=== PATIENT | male | born 1985 | race Caucasian/White ===

== ENCOUNTER 2016-12-22 00:59 | Emergency (ER) | payer OTHER ==
[2016-12-22] MEDS ORDERED: ASPIRIN 81 MG CHEW TAB ONE (01:09)
[2016-12-22] MEDS: ASPIRIN 325 MG TABLET PO ONE (01:10)
--- NOTE | 2016-12-22 01:31 | ED Physician Documentation ---
General Adult - HISTORIAN Historian: patient - HPI Stated Complaint: chest pain, shortness of breath Chief Complaint: General Adult Additional Information: Left sided CP began at about 2330 while he was getting ready for work. Pressure , feels like elephant sitting on chest. Radiates toward left shoulder. Went to work and saw nurse who told him vital signs were ok. No sweats, palpitations, or SOB. Pain has gotten better since it began. Worse with deep breath. Never had this before. - ROS CONST: no problems - PAST HX Past History: none Surgeries/Procedures: none Allergies/Adverse Reactions: Allergies Allergy/AdvReac Type Severity Reaction Status Date / Time No Known Allergies Allergy Verified 12/22/16 01:09 Home Medications: Ambulatory Orders Medication Instructions Recorded Amoxicillin [Trimox] 500 mg PO TID #30 capsule 12/22/16 Azithromycin [Zithromax] 250 mg PO DAILY #4 tablet 12/22/16 - SOCIAL HX Smoking History: cigarettes (1/2 PPD fpr fpur years) - FAMILY HX Family History: Yes (blood clots beginning in 40's, father's family) - VITAL SIGNS Vital Signs: Vital Signs Temp Pulse Resp BP Pulse Ox 92 H 18 124/72 97 12/22/16 01:00 12/22/16 01:00 12/22/16 01:00 12/22/16 01:07 - REVIEWED ASSESSMENTS Nursing Assessment Reviewed: Yes Vitals Reviewed: Yes Progress - Progress Progress: Chest 2 views History: Left chest pain and difficulty breathing Findings: Hazy bibasilar infiltrate or edema is observed. Heart size and pulmonary vascularity are normal. No pleural effusions are identified. Low lung volumes are noted. Osseous structures are unremarkable. Impression: 1. Low lung volumes with hazy bibasilar infiltrate or edema. Electronically signed on Dec 22, 2016 1:33:11 AM STRATEGY DIRECTOR by: Ed Cardenas ED Results Lab/Radiology - Orders Orders: ED Orders Category Date Time Status Continuous EKG monitoring Q1H Care 12/22/16 01:21 Ordered Continuous Pulse Oximetry Q1H Care 12/22/16 01:[address] Saline Lock/IV Now Care 12/22/16 01:07 Active CHEST P.A.&LAT 2 VIEWS [RAD] Stat Exams 12/22/16 Ordered CBC/PLATELET/DIFF Routine Lab 12/22/16 Ordered CMP Routine Lab 12/22/16 Ordered TROPONIN I (cTnI) Stat Lab 12/22/16 Ordered URINALYSIS Routine Lab 12/22/16 Ordered Aspirin Med 12/22/16 01:09 Discontinued 324 mg .ROUTE .STK-MED ONE Aspirin Med 12/22/16 01:07 Discontinued 325 mg PO NOW ONE Oxygen Daily Oxygen 12/22/16 01:15 Ordered EKG WITH COMPARISON Stat Ther 12/22/16 Ordered General Adult Physical Exam - PHYSICAL EXAM GENERAL APPEARANCE: Evasive EENT: eye inspection normal, ENT inspection normal, pharynx normal NECK: normal inspection, supple RESPIRATORY: no resp distress, breath sounds normal, other (palpation left upper anterior chest reproduces his pain) CVS: reg rate & rhythm, heart sounds normal, equal pulses, no murmur ABDOMEN: normal bowel sounds, no distension, non-tender RECTAL: deferred BACK: normal inspection, no CVA tenderness SKIN: warm/dry, normal color EXTREMITIES: non-tender, normal range of motion (gait), no evidence of injury, no edema NEURO: CN's nml as tested, motor nml, sensation nml Discharge Clincal Impression: Chest wall pain, Bilateral pulmonary infiltrates on chest x-ray Prescriptions: Amoxicillin [Trimox] 500 mg PO TID #30 capsule Azithromycin [Zithromax] 250 mg PO DAILY #4 tablet Additional Instructions: Take all the antibiotics as prescribed until they are completely gone. Drink plenty of water. Avoid all smoke. Home Medications: Ambulatory Orders Amoxicillin [Trimox] 500 mg PO TID #30 capsule 12/22/16 Azithromycin [Zithromax] 250 mg PO DAILY #4 tablet 12/22/16 Condition: Good Disposition: 01 HOME, SELF-CARE Decision to Admit: NO Decision Time: 02:00
[2016-12-22 01:39] LABS: BASOPHILS % 0.5 (0.0-1.5); EOSINOPHILS % 1.5 % (0.0-6.8); MEAN CORPUSCULAR HEMOGLOBIN 30.8 pg (28.0-34.0); MONOCYTES # 0.3 # k/uL (0.0-0.9); MONOCYTES % 3.6 % (0.0-11.0); NEUTROPHILS # 6.3 # k/uL (1.4-7.7)
[2016-12-22 01:51] LABS: eGFR (African) > 60; eGFR (Non-African) > 60
[2016-12-22] MEDS: AZITHROMYCIN 250 MG TABLET PO ONE (02:00)
[2016-12-22] MEDS: AMOXICILLIN 500 MG CAPSULE PO ONE (02:00)
[2016-12-22 02:21] VITALS: BP 110/61
--- NOTE | 2016-12-22 07:09 | Diagnostic Imaging Report ---
GARRETT TOMPKINS~ [facility] [address] [facility] [address] [place], [place]. [address] ~ ~ ~ ~ Report Submission Date: Dec 22, 2016 1:33:11 AM BANQUET CHEF Patient ~ Study Name: CHRISTIAN PIERCE ~ Date: Dec 22, 2016 1:20:34 AM BANQUET CHEF ~ Modality Type: CR Gender: M ~ Description: CHEST : 89 ~ Institution: [facility] Physician: GARRETT TOMPKINS ~ ~ ~ ~ Chest 2 views History: Left chest pain and difficulty breathing Findings: Hazy bibasilar infiltrate or edema is observed. Heart size and pulmonary vascularity are normal. No pleural effusions are identified. Low lung volumes are noted. Osseous structures are unremarkable. Impression: 1. Low lung volumes with hazy bibasilar infiltrate or edema. ~ Electronically signed on Dec 22, 2016 1:33:11 AM BANQUET CHEF by: Ed SILVER
== END 2016-12-22 02:05 | disposition home or self-care (01) ==
LOC: ED 00:59
DX: R07.89 Other chest pain (principal); R91.8 Other nonspecific abnormal finding of lung field
CPT/HCPCS: 71020; 80053; 84484; 85025; 87400; 93005; A9270; 99282; 99283; S1016

== ENCOUNTER 2017-09-02 21:50 | Emergency (ER) | payer OTHER ==
[2017-09-02 22:15] VITALS: BP 118/73
--- NOTE | 2017-09-02 22:53 | ED Physician Documentation ---
Upper Respiratory Symptoms - HISTORIAN Historian: patient, friend (SCOTT OMER--SAME SYMPTOMS) - HPI Stated Complaint: Cough and sinus congestion Chief Complaint: Cough/ Upper Respiratory Additional Information: COUGH CONGESTION ACHE ALL OVER SL FEBRILE SINUS CONGESTION Onset: days ago (10) Duration: constant, intermittent episodes Context: denies: recent foreign travel, insect bite(s) Severity: moderate Associated Symptoms: fever, chills, runny nose, sinus pain, productive cough ( RARELY SL YE;;OW), headache. denies: bloody cough Worsened by Deep Breath: Yes Further Comments: yes (FIANCE STARTED SAME SY 2 DAYS LATLER-BOTH STILL HAVE SAME ) - ROS CONST/EYES: weakness. denies: eye redness, eye itching CVS/RESP: none LYMPH: denies: leg swelling, rash, swollen glands GI/: vomiting, nausea (RARELY). denies: abdominal pain, problems urinating, black stools MS/SKIN: joint pain, muscle aches. denies: rash - PAST HX Lung Disease: none PE Risk Factors: none Surgeries/Procedures: none Immunizations: denies: influenza, pneumovax Allergies/Adverse Reactions: Allergies Allergy/AdvReac Type Severity Reaction Status Date / Time No Known Allergies Allergy Verified 09/02/17 22:15 Home Medications: Ambulatory Orders Medication Instructions Recorded NK [NK] 09/02/17 - SOCIAL HX Smoking History: non-smoker Alcohol Use: none Drug Use: none - FAMILY HX Family History: no significant history - VITAL SIGNS Vital Signs: Vital Signs Temp Pulse Resp BP Pulse Ox 99.2 F 97 H 16 118/73 97 09/02/17 22:40 09/02/17 22:40 09/02/17 22:40 09/02/17 22:40 09/02/17 22:40 - REVIEWED ASSESSMENTS Nursing Assessment Reviewed: Yes Vitals Reviewed: Yes ED Results Lab/Radiology - Orders Orders: ED Orders Category Date Time Status INFLUENZA A&B Stat Lab 09/02/17 22:15 Uncollected Upper Respiratory Symptoms - EXAM General Appearance: mild distress EENT: eyes nml inspection. No: nml ENT inspection (NASAL CONGESTION), pain over sinuses, pale conjunctivae, conjunctival erythema, TM erythema, pharynx nml , pharyngeal erythema, muffled voice Neck: No: normal inspection Respiratory: no resp. distress, breath sounds nml, speaks full sentences. No: prolonged expirations, dull on percussion Abdomen: non-tender, no distention CVS: reg rate & rhythm, heart sounds normal Skin: color nml, no rash, warm,dry. No: cyanosis, diaphoresis, pallor, rash Extremities: No: non-tender (ACHE ALL OVER) Neuro/Psych: oriented x3, mood/affect nml Discharge Clincal Impression: INFLUENZA TYPE B Referrals: Primary Doctor,No [Primary Care Provider] - 2 Days Comments: HOME REST BAL NUT HI FLUIDS NO CIGS CLARITIN COLD LEWIS PERHAPS ALSO RANITIDINE ROBITUSSINCOUGH SYRUP Condition: Good Disposition: 01 HOME, SELF-CARE Decision to Admit: NO Decision Time: 22:58
== END 2017-09-02 22:40 | disposition home or self-care (01) ==
LOC: ED 21:50
DX: J11.1 Influenza due to unidentified influenza virus with other respiratory manifestations (principal)
CPT/HCPCS: 87400; 99283